=== PATIENT | male | born 1980 | race Caucasian/White ===

== ENCOUNTER 2022-12-12 22:31 | Emergency (ER) | payer OTHER, SELFPAY ==
[2022-12-12 22:39] VITALS: BP 147/96; PULSE 73; RESP 22; O2SAT 100; BMI 23.6
--- NOTE | 2022-12-12 23:03 | ED_ITS ---
HPI - Male Genitourinary General Chief complaint: Urogenital-Male Stated complaint: FLANK PAIN Time Seen by Provider: 12/12/22 22:59 Source: patient Mode of arrival: walk-in Limitations: no limitations History of Present Illness HPI Narrative: past history of kidney stones. presents complaining of right CVA pain that increased around 9pm tonight associated with nausea Related Data Allergies Allergy/AdvReac Type Severity Reaction Status Date / Time No Known Drug Allergies Allergy Verified 12/12/22 22:43 Review of Systems ROS Status of ROS 10 or more systems reviewed and unremarkable except as noted in history and below [facility] Social History Smoking status: Never smoker Exam Constitutional Vital Signs, click to edit/add: Last Vital Signs Pulse 73 12/12/22 22:39 Resp 22 12/12/22 22:39 BP 147/96 H 12/12/22 22:39 Pulse Ox 100 12/12/22 22:39 O2 Del Method Room Air 12/12/22 22:39 Common normals: average body habitus, oriented x3, no limitations, healthy appearing, alert and well nourished General appearance: in distress HENMT Common normals: normocephalic and head/scalp atraumatic Eye Common normals: EOMs intact bilaterally and conjunctivae normal Respiratory Common normals: normal respiratory effort, no retractions, no use of accessory muscles and clear to auscultation bilaterally Cardio Common normals: S1 normal heart sound and S2 normal heart sound Rate: tachycardic GI Common normals: Normal to inspection, nondistended, normoactive bowel sounds present, soft to palpation and non-tender Back & Pelvis General back: CVA tenderness (mild right CVA tenderness) Extremity Common normals: normal to inspection and full ROM Neuro Common normals: oriented x3, CN's II-XII intact bilaterally, moves all ext remities and no focal motor deficits Psych Appearance: grossly normal Course Vital Signs Vital signs: Vital Signs Pulse Rate 73 12/12/22 22:39 Respiratory Rate 22 12/12/22 22:39 Blood Pressure 147/96 H 12/12/22 22:39 Pulse Oximetry 100 12/12/22 22:39 Oxygen Delivery Method Room Air 12/12/22 22:39 Pulse Rate 73 12/12/22 22:39 Respiratory Rate 22 12/12/22 22:39 Blood Pressure 147/96 H 12/12/22 22:39 Pulse Oximetry 100 12/12/22 22:39 Oxygen Delivery Method Room Air 12/12/22 22:39 MDM - Male Genitourinary MDM Narrative Medical decision making narrative: patient presents writhing in pain from right renal colic and nauseated. Pain controlled with orphenadrine and toradol. Patient Hydrated with IV NS. CT with bilat uteral stones and mild hydronephrosis. UA without evidence of infection. Patient did have elevated lactic acid for which he was given additional fluids. He remained relaxed without recurrence of pain. Discharged home to follow up with Urology Lab Data Labs: Lab Results 12/12/22 12/12/22 12/13/22 Range/Units 22:45 23:20 01:42 WBC 9.7 (4.0-11.0) 10^3/uL RBC 5.20 (4.70-6.10) 10^6/uL Hgb 15.0 (14.0-18.0) g/dL Hct 46.3 (42.0-54.0) % MCV 89.0 (80.0-94.0) fL MCH 28.8 (25.9-34.0) pg MCHC 32.4 (29.9-35.2) g/dL RDW 12.9 (11.0-15.0) % Plt Count 294 (150-450) 10^3/uL MPV 10.6 (9.5-13.5) fL Neut % (Auto) 41.1 L (43.0-75.0) % Lymph % (Auto) 43.7 (20.5-60.0) % Warren % (Auto) 10.6 (1.7-12.0) % Eos % (Auto) 3.5 (0.9-7.0) % Baso % (Auto) 0.8 (0.2-2.0) % Neut # (Auto) 4.0 (1.4-6.5) 10^3/uL Lymph # (Auto) 4.2 H (1.2-3.8) 10^3/uL Warren # (Auto) 1.0 H (0.3-0.8) 10^3/uL Eos # (Auto) 0.3 (0.0-0.7) 10^3/uL Baso # (Auto) 0.1 (0.0-0.1) 10^3/uL Abs Immat Gran (auto) 0.03 (0.00-0.03) 10^3/uL Imm/Tot Granulo (auto) 0.3 (0.0-0.5) % Sodium 140 (136-145) mmol/L Potassium 3.1 L (3.5-5.1) mmol/L Chloride 102 (98-107) mmol/L Carbon Dioxide 24.8 (21.0-32.0) mmol/L Anion Gap 16.3 BUN 24.0 H (7.0-18.0) mg/dL Creatinine 1.41 H (0.70-1.30) mg/dL Est GFR ( Amer) >60 (>=60) Est GFR (Non-Af Amer) 55 L (>=60) BUN/Creatinine Ratio 17.0 Glucose 122 H (74-106) mg/dL Lactate 4.9 H* 2.0 (0.4-2.0) mmol/L Calcium 9.1 (8.5-10.1) mg/dL Total Bilirubin 0.2 (0.2-1.0) mg/dL AST 29 (15-37) U/L ALT 70 H (16-63) U/L Alkaline Phosphatase 91 (46-116) U/L Total Protein 7.2 (6.4-8.2) g/dL Albumin 3.8 (3.4-5.0) g/dL Globulin 3.4 g/dL Albumin/Globulin Ratio 1.1 Lipase 31.0 (16.0-77.0) U/L Urine Color Lt. yellow (YELLOW) Urine Clarity Sl cloudy (CLEAR) Urine pH 7.0 (5.0-9.0) Ur Specific [place] 1.020 (1.005-1.025) Urine Protein Negative (NEG/TRACE) mg/dL Urine Glucose (UA) Negative (NEGATIVE) mg/dL Urine Ketones Negative (NEGATIVE) mg/dL Urine Occult Blood Large A (NEGATIVE) Urine Nitrite Negative (NEGATIVE) Urine Bilirubin Negative (NEGATIVE) Urine Urobilinogen 0.2 (0.2-1.0) EU/dL Ur Leukocyte Esterase Negative (NEGATIVE) Urine RBC >100 A (0-2) #/HPF Urine WBC 0-2 A (NONE SEEN) #/HPF Ur Squamous Epith Cells Few A (NONE/RARE) #/LPF Urine Crystals None seen (None Seen) #/HPF Urine Bacteria Trace A (NONE SEEN) #/HPF Urine Casts None seen (NONE SEEN) #/LPF Urine Mucus None seen (NONE SEEN) Ur Culture Indicated? No Imaging Data CT scan - abdomen: Radiologist's impression: Ordering Physician: Cyrus Sahni Date of Service: 12/12/22 Procedure(s): CT abdomen pelvis wo con Accession Number(s): [id number] cc: Physician,Non-Staff M.D.~ [facility] [place] [id number] Patient Name: MARLEY BUSH MRN: [facility]:[id number] date: 1980 Sex: M Assigned Patient Location: ER Current Patient Location: ER Accession/Order Number: [id number] Exam Date: 12/12/2022 23:25 Report Date: 12/13/2022 00:03 At the request of: CYRUS SAHNI Procedure: CT abdomen pelvis wo con EXAM: CT abdomen pelvis wo con HISTORY: right kidney stone Right flank pain. COMPARISON: None. TECHNIQUE: Nonenhanced CT imaging the abdomen and pelvis was performed with sagittal and coronal reconstructions. FINDINGS: CT ABDOMEN: The lung bases are clear. Cardiac size is normal. There is no pericardial effusion. The exam is limited by the lack of IV contrast. Solid organ lesions or acute abnormalities could be missed. Allowing for this, the liver, gallbladder, pancreas, spleen, adrenal glands, aorta, IVC, and small bowel appear grossly unremarkable. A small hiatal hernia is noted. The stomach is otherwise unremarkable. There is mild right hydroureteronephrosis due to a 3 mm stone in the distal right ureter roughly 2 cm proximal to the UVJ on image 112 of series 3. There is mild left hydroureteronephrosis due to a proximal left ureteral stone at the L3-L4 level on image 61 of series 3. There are multiple additional nonobstructing stones in both kidneys, measuring up to 8 mm on the left on image 46. The kidneys are otherwise unremarkable. A fat-containing umbilical hernia is noted. CT PELVIS: A normal appendix is seen on image 85. The pelvic small bowel loops, colon, seminal vesicles and prostate are unremarkable. There is nonspecific urinary bladder wall thickening. No inflammatory fat stranding, free fluid, loculated fluid or free air is seen in the abdomen or pelvis. No acute osseous abnormality or suspicious bony lesion is seen. CT/CT abdomen pelvis wo con IMPRESSION: 1. Multiple bilateral renal calculi, with mild right hydroureteronephrosis due to a 3 mm distal right ureteral stone roughly 2 cm proximal to the UVJ, and mild left hydroureteronephrosis due to a 4 mm stone in the proximal left ureter at the L3-L4 level. 2. Nonspecific urinary bladder wall thickening is greater than expected for incomplete bladder distention. Clinical correlation recommended to exclude potential cystitis. No other potential acute findings are seen in the abdomen or pelvis. 3. Small hiatal hernia. Electronically authenticated by: ANJEL TAFOYA Date: 12/13/2022 00:03 Discharge Plan Discharge Chief Complaint: Urogenital-Male Clinical Impression: Calculus of both kidneys Patient Disposition: Home, Self-Care Instructions: Kidney Stones (ED) Additional Instructions: drink plenty of fluids and follow up with Dr Crandall Urology Stand Alone Forms: Portal Instructions Referrals: Krystyna Crandall MD [Physician] - 1 week Physician,Non-MD Les [Primary Care Provider] - 1 week Discharge Date/Time: 12/13/22 03:24
[2022-12-12] MEDS: ORPHENADRINE 60 MG/ 2 ML VIAL IV (23:17)
[2022-12-12] MEDS: 0.9 % SODIUM CHLORIDE 1,000 ML 999 ML IV (23:17)
[2022-12-12] MEDS: KETOROLAC TROMETHAMINE 30 MG/ML VIAL IVP (23:17)
[2022-12-12] MEDS: PROMETHAZINE HCL 25 MG/ML VIAL 12.5 MG IV (23:17)
[2022-12-12 23:19] LABS: Basophils Absolute Auto 0.1 10^3/uL (0.0-0.1); Basophils Percent Auto 0.8 % (0.2-2.0); Eosinophils Absolute Auto 0.3 10^3/uL (0.0-0.7); Eosinophils Percent Auto 3.5 % (0.9-7.0); Hematocrit 46.3 % (42.0-54.0); Immature Granulocytes Abs Auto 0.03 10^3/uL (0.00-0.03); Immature Granulocytes Pct Auto 0.3 % (0.0-0.5); Lymphocytes Absolute Auto 4.2 10^3/uL (1.2-3.8); Lymphocytes Percent Auto 43.7 % (20.5-60.0); Mean Corpuscular HGB Conc 32.4 g/dL (29.9-35.2); Mean Corpuscular Hemoglobin 28.8 pg (25.9-34.0); Mean Platelet Volume 10.6 fL (9.5-13.5); Monocytes Percent Auto 10.6 % (1.7-12.0); Neutrophils Percent Auto 41.1 % (43.0-75.0); Platelet Count 294 10^3/uL (150-450); Red Cell Distribution Width 12.9 % (11.0-15.0); White Blood Count 9.7 10^3/uL (4.0-11.0)
[2022-12-12 23:26] LABS: Bilirubin Urine NEGATIVE (NEGATIVE); Blood Urine LARGE (NEGATIVE); Clarity Urine SL CLOUDY (CLEAR); Color Urine LT. YELLOW (YELLOW); Glucose Urine UA NEGATIVE (NEGATIVE); Ketones Urine NEGATIVE (NEGATIVE); Leukocyte Esterase Urine NEGATIVE (NEGATIVE); Nitrite Urine NEGATIVE (NEGATIVE); Protein Urine NEGATIVE (NEG/TRACE); Urobilinogen Urine 0.2 EU/dL (0.2-1.0)
[2022-12-12 23:35] LABS: Urine Microscopic Indicated YES
[2022-12-12 23:36] LABS: Bacteria Urine TRACE #/HPF (NONE SEEN); Mucus Urine NONE SEEN (NONE SEEN); RBC Urine >100 #/HPF (0-2); WBC Urine 0-2 #/HPF (NONE SEEN)
[2022-12-12 23:37] LABS: Cast Seen? NONE SEEN #/LPF (NONE SEEN); Crystals Seen? None Seen #/HPF (None Seen); Squamous Epithelial Cell Urine FEW #/LPF (NONE/RARE); Urine Culture Indicated NO
[2022-12-12 23:37] LABS: Alanine Aminotransferase 70 U/L (16-63); Albumin Globulin Ratio 1.1; Albumin Level 3.8 g/dL (3.4-5.0); Alkaline Phosphatase 91 U/L (46-116); Anion Gap 16.3; Aspartate Amino Transferase 29 U/L (15-37); Bilirubin Total 0.2 mg/dL (0.2-1.0); Calcium 9.1 mg/dL (8.5-10.1); Carbon Dioxide 24.8 mmol/L (21.0-32.0); Chloride 102 mmol/L (98-107); Estimated GFR (African America >60 (>=60); Estimated GFR (Non-African Ame 55 (>=60); Globulin 3.4 g/dL; Glucose 122 mg/dL (74-106); Potassium 3.1 mmol/L (3.5-5.1); Sodium 140 mmol/L (136-145); Total Protein 7.2 g/dL (6.4-8.2)
[2022-12-12 23:41] LABS: Lactate/Lactic Acid 4.9 mmol/L (0.4-2.0)
[2022-12-13] MEDS: 0.9 % SODIUM CHLORIDE 1,000 ML 999 ML IV (00:22)
== END 2022-12-13 03:24 | disposition home or self-care (01) ==
PROVIDERS: Emergency Provider Internal Medicine
DX: N13.2 Hydronephrosis with renal and ureteral calculous obstruction (principal)
CPT/HCPCS: 36415; 74176; 80053; 81001; 83605; 83690; 85025; 96374; 96375; 99284